=== PATIENT | female | born 1970 | race Caucasian/White ===

== ENCOUNTER → 2016-04-21 | Outpatient (REF) | payer OTHER ==
[~2016-04-21] MED LIST: /CELE20CA PO; ALDA25TA2 OR; CELE10TA PO; DARV100T OR; IBUP600T OR; KETO-28 OR; NORC5TAB PO; OXYC10TA56 OR; SERT25TA85 PO; TETR500C OR; TRAM50TA2 OR; VALI5TAB PO; VENL75TA2 OR; VOLT1GEL EX; ZIPSOR OR; ZOLO50TA OR; antidepressant PO
[2016-04-21 18:36] LABS: INR 0.98
== END ==
LOC: M LABDRAW1 16:10
PROVIDERS: ATTEND Physical Medicine & Rehabilitation
DX: Z01.818 Encounter for other preprocedural examination (principal); M48.02 Spinal stenosis, cervical region

== ENCOUNTER → 2016-05-07 | Outpatient (CLI) | payer OTHER ==
--- NOTE | 2016-05-07 10:21 | REP ---
DIGITAL SCREENING BILATERAL MAMMOGRAPHY WITH CAD: Comparison bilateral mammography March 25, 2015, August 16, 2014, January 22, 2014, November 16, 2013. The patient is status post excisional lumpectomy for benign mass in the right breast January 2014. FINDINGS: There is a moderate stable pattern of scattered fibroglandular tissue bilaterally unchanged from recent prior mammography. Normal appearing lymph nodes are seen in each axilla. No mass spiculation, or architectural distortion is seen. However, there is a new tight grouping of microcalcifications in the upper outer quadrant of the right breast which merits further evaluation. Study is otherwise unremarkable. IMPRESSION: BIRADS category 0 incomplete breast imaging. New microcalcifications in the upper outer quadrant of the right breast. Recommend diagnostic right breast mammography. BI-RADS/ACR category 0 mammogram, incomplete. Additional imaging and/or prior images are needed before a final assessment can be assigned. This mammogram was interpreted with the aid of an FDA-approved computer-aided detection system. The patient states that she/he has not had a clinical breast exam in over a year. The patient letter being requested is M0 . Signed by Rich Javed MD 05/07/2016 10:26 A
== END ==
LOC: M RAD 09:30
PROVIDERS: ATTEND Physician Assistant Medical
DX: Z12.31 Encounter for screening mammogram for malignant neoplasm of breast (principal); R92.8 Other abnormal and inconclusive findings on diagnostic imaging of breast

== ENCOUNTER → 2016-05-07 | Outpatient (CLI) | payer OTHER ==
--- NOTE | 2016-05-07 12:14 | REP ---
Cervical spine series: Nine views. History: Occipital neuralgia. Comparison cervical spine views are from October 08, 2015. Findings: The patient is status post ventral discectomy and fusion plating across the C5-C7 vertebral body levels. No change in position of the fusion plate or disc grafts at the surgical site since the prior study. There is straightening of the normal cervical lordosis and some limitation of flexion/extension range of motion is seen on flexion/extension lateral views. No subluxation or instability is seen. AP and open mouth odontoid views are otherwise unremarkable. Oblique images demonstrate intact neural foramina bilaterally at each cervical level and normally aligned facets. Impression: Straightening and limited range of motion status post C5-C7 fusion. No change in findings from October 08, 2015. Signed by Rich Javed MD 05/07/2016 03:09 P
== END ==
LOC: M RAD 10:41
PROVIDERS: ATTEND Neurological Surgery
DX: M54.81 Occipital neuralgia (principal)

== ENCOUNTER → 2016-05-14 | Outpatient (CLI) | payer OTHER ==
--- NOTE | 2016-05-14 13:16 | REP ---
Digital diagnostic unilateral right breast mammography with CAD: History: Screening mammography from May 07, 2016 is BIRADS category 0 because of some new calcifications in the upper outer quadrant of the right breast. Diagnostic imaging is recommended. Comparison is also made with prior study from August 16, 2014 and March 25, 2015. There is apparently a history of excisional biopsy from the right breast as well. Findings: Magnified focal spot compression CC, true ML, and MLO views of the right breast are obtained. These show moderate fibroglandular elements. There is a grouping of coarse heterogeneous microcalcifications in the upper outer quadrant confirmed on magnified images. These are fairly superficial in the upper outer quadrant. No stromal density or mass lesion is seen. There is another single coarse calcification a little more anterior and inferior. These are new. Mammography is otherwise unremarkable today. Impression: A small grouping of coarse heterogeneous microcalcifications is confirmed in the right breast upper outer quadrant. BIRADS category 4 suspicious right breast imaging. Stereotactic needle biopsy recommended. This mammogram was interpreted with the aid of an FDA-approved computer-aided detection system. The patient states that she/he has not had a clinical breast exam in over a year. The patient letter being requested is M4 . Signed by Rich Javed MD 05/14/2016 02:59 P
== END ==
LOC: M RAD 12:35
PROVIDERS: ATTEND Physician Assistant Medical
DX: R92.0 Mammographic microcalcification found on diagnostic imaging of breast (principal)

== ENCOUNTER → 2016-05-29 | Outpatient (CLI) | payer OTHER ==
[~2016-05-29] MED LIST changes: +LIDOCAINE 1% MDV 20ML VIAL As Ordered ONE
--- NOTE | 2016-05-29 13:09 | REP ---
Digital diagnostic unilateral right breast mammography: Two views with CAD. History: Marker clip placement views. The patient is status post stereotactic needle biopsy of the right breast for microcalcifications. Findings: A stereotactically placed needle biopsy marker clip is seen in good position at the site where prior mammography from May 14, 2016 showed a suspicious grouping of microcalcifications. The microcalcifications are no longer present. No hematoma is seen. Impression: Marker clip in good position. This mammogram was interpreted with the aid of an FDA-approved computer-aided detection system. Signed by Rich Javed MD 05/29/2016 02:59 P
--- NOTE | 2016-05-29 13:10 | REP ---
Specimen radiograph right breast. History: Stereotactic needle biopsy for microcalcifications right breast. Findings: Specimen radiography demonstrates microcalcifications from the target grouping of microcalcifications in two of the removed specimens. Impression: Specimen radiography shows microcalcifications. Signed by Rich Javed MD 05/29/2016 02:59 P
--- NOTE | 2016-05-29 16:14 | REP ---
STEREOTACTIC RIGHT BREAST BIOPSY: The procedure was performed under the direct supervision of Dr. Javed. The patient has a history of a small grouping of course heterogenous microcalcifications in the right breast upper outer quadrant seen on a previous mammogram dated 05/14/2016. The risks and benefits of the procedure were explained to the patient and informed consent was obtained. A cranial caudal approach was utilized. The calcifications were localized using stereotactic mammographic guidance. The skin was prepped and draped in a sterile fashion. 1% Xylocaine was used as a local anesthetic. A 10-gauge suction assisted Mammotome needle was inserted and 6 core biopsy samples were obtained. Specimen radiograph demonstrates the presence of calcifications to be within the specimen. A marker clip was placed at the biopsy site. The patient tolerated the procedure well and there were no immediate complications. After the appropriate amount of monitored convalescence the patient was discharged from the department. Reviewed by TUYET Crowell 05/29/2016 04:33 PEdited and Signed by Rich Javed MD 05/29/2016 04:58 P
== END ==
LOC: M RADPRO 11:29
PROVIDERS: ATTEND Surgery
DX: D24.1 Benign neoplasm of right breast (principal)

== ENCOUNTER → 2016-07-29 | Outpatient (CLI) | payer OTHER ==
[~2016-07-29] MED LIST changes: -LIDOCAINE 1% MDV 20ML VIAL As Ordered ONE; +NORC1TAB4 PO; -NORC5TAB PO; +SERT25TA PO; -SERT25TA85 PO
--- NOTE | 2016-07-29 09:58 | REP ---
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 Comparison MRI study is from November 22, 2015 done at [facility]. Technique: Sagittal and axial T1 and T2-weighted scans are acquired in the usual fashion with and without fat saturation. Sequences include spin echo, turbo spin-echo, and STIR imaging sequences. MRI findings: There is straightening of the normal cervical lordosis. Magnetic field susceptibility artifact is seen emanating from the ventral discectomy and fusion plate procedure across the C5-C7 vertebral body levels as on the December 07, 2015 prior MRI study. Alignment is normal. The cervical cord is normal in coarse caliber and signal intensity on T1 and T2-weighted scans. No cord compressive lesion or myelomalacia lesion is seen. No extra spinal abnormality is observed. Axial and sagittal images at C2-3 show minimal central disc bulging. At C3-4, there is diffuse disc bulging. There is no neural foraminal narrowing or central canal stenosis. At C4-5, there is right paracentral disc bulging effacing the ventral subarachnoid space but not visibly compressing the cord. No neural foraminal narrowing is seen. At C5-6, no cord compression is seen. At C6-7, there is a small zone of residual posterior osteophytic lipping just to the right of midline effacing the ventral subarachnoid space but not compressing the cord. This is unchanged. The C7-T1 level is unremarkable. Impression: Mild degenerative spondylosis changes. The patient status post C5-C7 ventral discectomy and fusion plating. Normal alignment. No evidence of cord compression or myelomalacia lesion. Signed by Rich Javed MD 07/29/2016 10:44 A
== END ==
LOC: M RAD 07:18
PROVIDERS: ATTEND Neurological Surgery
DX: M54.81 Occipital neuralgia (principal); M47.892 Other spondylosis, cervical region; M47.12 Other spondylosis with myelopathy, cervical region; Z98.1 Arthrodesis status

== ENCOUNTER → 2016-12-22 | Outpatient (REF) | payer OTHER ==
[2016-12-22 18:27] LABS: INR 0.93
== END ==
LOC: M LABDRAW1 15:37
PROVIDERS: ATTEND Physical Medicine & Rehabilitation
DX: Z01.818 Encounter for other preprocedural examination (principal)

== ENCOUNTER → 2017-06-02 | Outpatient (CLI) | payer OTHER | LOC: M RAD 09:30 | DX: Z12.31 Encounter for screening mammogram for malignant neoplasm of breast (principal) | CPT/HCPCS: 77067 ==

== ENCOUNTER → 2018-07-14 | Outpatient (CLI) | payer OTHER ==
[~2018-07-14] MED LIST changes: -/CELE20CA PO; +CELE1CAP4 PO; -NORC1TAB4 PO; +NORC1TAB7 PO; -SERT25TA PO; +SERT25TA85 PO
--- NOTE | 2018-07-14 14:36 | REP ---
Clinical: Radiculopathy. Technique: AP and lateral views. Comparison: 03/04/2017. Findings: Alignment is maintained with mild straightening of normal lordosis suggested. Previous anterior fixation at C5 - C7 remains stable and unchanged. New fixation screws and discectomy involving C4-C5 appreciated and appears relatively normal. No acute fracture / compression injury or subluxation. Spinous processes are intact. Prevertebral soft tissues are normal. Impression: Stable/normal postsurgical appearance. No acute fracture / compression injury or subluxation noted. Electronically Signed by Mark Anthony Plaza MD 07/14/2018 02:27 P
== END ==
LOC: M RAD 13:51
PROVIDERS: ATTEND Neurological Surgery
DX: M50.10 Cervical disc disorder with radiculopathy, unspecified cervical region (principal)

== ENCOUNTER → 2018-10-24 | Outpatient (CLI) | payer OTHER ==
--- NOTE | 2018-10-24 21:01 | REP ---
Clinical: Status post fixation. Technique: AP and lateral views of the cervical spine. Findings: Surgical skin miguel a identified midline posteriorly. The patient is status post bilateral Nash rods from C3 to T1 along with anterior fixation. Alignment is maintained. Impression: Status post fixation. Alignment maintained. Electronically Signed by Mark Anthony Plaza MD 10/24/2018 08:52 P
== END ==
LOC: M RAD 15:47
PROVIDERS: ATTEND Physician Assistant Surgical
DX: M50.30 Other cervical disc degeneration, unspecified cervical region (principal); M50.10 Cervical disc disorder with radiculopathy, unspecified cervical region; Z98.1 Arthrodesis status

== ENCOUNTER → 2020-08-16 | Outpatient (CLI) | payer OTHER ==
--- NOTE | 2020-08-16 16:18 | REPMRS ---
Patient History The patient states she has not had a clinical breast exam in over a year. Family history of colorectal cancer at age 50 or over in maternal grandfather. Benign radio exam breast specimen of the right breast, May 29, 2016. Benign stereotatic loc for ea lesion of the right breast, May 29, 2016. Radio exam Breast Specimen, January 22, 2014. Benign lumpectomy of the right breast, January 22, 2014. Benign US guided breast biopsy of the right breast, November 16, 2013. No Hormone Replacement Therapy Patient has signed MRS History Sheet. Patient states intermittent right breast pain. Digital Woman Screen Mammo: August 16, 2020 - Exam #: [id number] Bilateral CC and MLO view(s) were taken. Technologist: Jane Banuelos, Technologist Prior study comparison: June 02, 2017, bilateral digital mammo screening bilat, performed at [facility]. May 14, 2016, right breast digital mammo diagnostic unilateral, performed at [facility]. FINDINGS: The breast tissue is heterogeneously dense. This may lower the sensitivity of mammography. Screening. Digital screening (2D) mammography was performed bilaterally in the CC and MLO projections. Additionally, breast tomosynthesis (3D mammography) was performed bilaterally in the CC and MLO projections. Todays exam was compared to the prior exams(s). By history, the patient has no complaints of a palpable breast abnormality or other significant breast complaints. The breasts are unchanged in size and shape.Once again, dense heterogenous fibroglandular elements are seen bilaterally in a stable appearing pattern but to such a degree that the sensitivity of the mammogram in detecting cancer is decreased. There are no suzi-soft tissue densities or spiculated masses. There is no internal architectural distortion. There are no suspicious suzi-calcific clusters. Skin thickening or nipple retraction is not present. IMPRESSION: BI-RADS Category 2- Benign Findings(s). There is no evidence of malignant alteration of the breasts. Followup examination recommended in one year. The Volpara volumetric breast density category is C, the breasts are heterogenously dense which may obscure small masses. This mammogram was read with the assistance of [employer]an FDA approved computer aided detection system for mammography. Findings:The lifetime Tyrer-Cuzick score is 9.3 % Negative x-ray reports should not delay surgical consultation if a dominant or clinically suspicious mass is present. Not all breast cancers can be identified by mammography. Therefore, we recommend that you continue to perform regular breast self-examination and physical examination and then promptly contact your physician of any concerns or changes. Adenosis and dense breasts may obscure an underlying neoplasm. Assessment: BI-RADS/ACR category 2 mammogram. Benign Findings. Recommendation Routine screening mammogram of both breasts in 1 year. Electronically Signed By: Isaiah Medrano DO 08/16/20 [id number]
== END ==
LOC: M WHC 15:14
PROVIDERS: ATTEND Physician Assistant Medical
DX: Z12.31 Encounter for screening mammogram for malignant neoplasm of breast (principal); Z80.0 Family history of malignant neoplasm of digestive organs; N60.21 Fibroadenosis of right breast; N60.22 Fibroadenosis of left breast

== ENCOUNTER → 2020-08-27 | Outpatient (CLI) | payer OTHER ==
--- NOTE | 2020-08-28 09:13 | REP ---
INDICATION: DENSE BREAST. COMPARISON: There are no prior whole breast screening ultrasound examinations for comparison. TECHNIQUE: Bilateral whole breast screening ultrasonography was performed using anatomical intelligence and shear wave elastography where indicated. FINDINGS: Right breast: At the 11/12 o'clock position 2 smoothly marginated round hypoechoic structures are seen the largest measuring 5 millimeters both exhibiting posterior wall enhancement and increased through transmission. These are 2.8 millimeters apart and between them is a linear echogenic focus consistent with a post biopsy clip marker. Shear wave elastography was performed, however, the clip marker was included. Due to their close proximity shear wave and each nodule cannot be performed independently. At the 9 o'clock position there is a smoothly marginated hypoechoic structure which measures 1 centimeter in its greatest dimension shear wave elastography was performed on this showing low kPa values. At the 10 o'clock position there is an anechoic 8 millimeters size structure which exhibits posterior wall enhancement and increased through transmission. Left breast: At the 11 o'clock position there is an oval-shaped smoothly marginated hypoechoic structure measuring 9 millimeters and exhibiting posterior wall enhancement and increased through transmission. Shear wave elastography was performed on this and showing low kPa values. Additionally, at the 11 o'clock position there is a smoothly marginated hypoechoic structure which measures 6 millimeters in its greatest dimension and exhibits posterior wall enhancement and increased through transmission. Shear wave elastography on this lesion shows low kPa values. IMPRESSION: 1. In the right breast adjacent to a post biopsy clip there are 2 solid nodules, as described above, and both likely benign postoperative change, however, since I have no prior post biopsy ultrasound examinations for review a six-month follow-up examination particularly over that region is recommended. 2. In the right breast at the 9 o'clock position there is a probably benign small nodule as described above. 3. In the right breast at the 10 o'clock position there is a simple cyst. 4. In the left breast there are 2 hypoechoic nodules, as described above, both of which are probably benign. 5. ACR category 3 probably benign findings bilaterally. Six-month follow-up focused over the aforementioned areas recommended. <Electronically signed by Isaiah Medrano > 08/28/20 [id number]
== END ==
LOC: M WHC 13:02
PROVIDERS: ATTEND Physician Assistant Medical
DX: Z12.31 Encounter for screening mammogram for malignant neoplasm of breast (principal); N63.22 Unspecified lump in the left breast, upper inner quadrant

== ENCOUNTER 2020-11-27 12:15 | Day surgery (SDC) | payer OTHER ==
[~2020-11-27] VITALS: Ht 167.6 cm; Wt 85.3 kg
[~2020-11-27 12:15] MED LIST changes: +ATOR80TA59; +CYCL-707; +ERGO500029; +IBUP-1022; +MAGN400T2; +NS 1,000 ML IV ONE; +PANT40TA29; +SERT50TA29; +TRAM50TA2
[2020-11-27] MEDS ORDERED: LIDOCAINE 2% 100MG/5ML SDV (FOR ANES.) As Ordered ONE (13:45)
[2020-11-27] MEDS ORDERED: propofoL 200 MG/20 ML VIAL As Ordered ONE ×3 (13:45→15:00)
[2020-11-27] MEDS ORDERED: fentaNYL 100 MCG/2 ML INJECTION (J3010) As Ordered ONE (13:45)
[2020-11-27 15:40] VITALS: BP 122/82
--- NOTE | 2020-11-27 16:00 | ROOR ---
Patient Name: Nieves Ackerman Procedure Date: 11/27/2020 2:22 PM Date of : 1970 Age: 50 Room: [facility] Gender: Female Note Status: Finalized Procedure: Upper GI endoscopy Indications: Epigastric abdominal pain, Dyspepsia Providers: Cam Pretty MD Referring MD: [facility] Archana MILLIGAN [facility], Admin. Requesting Provider: Medicines: Monitored Anesthesia Care Complications: No immediate complications. Procedure: Pre-Anesthesia Assessment: - Prior to the procedure, a History and Physical was performed, and patient medications and allergies were reviewed. The patient is competent. The risks and benefits of the procedure and the sedation options and risks were discussed with the patient. All questions were answered and informed consent was obtained. Patient identification and proposed procedure were verified by the physician, the nurse and the anesthesiologist in the procedure room. Mental Status Examination: alert and oriented. Airway Examination: normal oropharyngeal airway and neck mobility. Prophylactic Antibiotics: The patient does not require prophylactic antibiotics. Prior Anticoagulants: The patient has taken no previous anticoagulant or antiplatelet agents. ASA Grade Assessment: II - A patient with mild systemic disease. After reviewing the risks and benefits, the patient was deemed in satisfactory condition to undergo the procedure. The anesthesia plan was to use monitored anesthesia care (MAC). Immediately prior to administration of medications, the patient was re-assessed for adequacy to receive sedatives. The heart rate, respiratory rate, oxygen saturations, blood pressure, adequacy of pulmonary ventilation, and response to care were monitored throughout the procedure. The physical status of the patient was re-assessed after the procedure. The Endoscope was introduced through the mouth, and advanced to the second part of duodenum. The upper GI endoscopy was accomplished without difficulty. The patient tolerated the procedure well. Findings: The examined esophagus was normal. The Z-line was regular. A few diminutive sessile polyps with no bleeding and no stigmata of recent bleeding were found on the greater curvature of the stomach. Normal mucosa was found in the entire examined stomach. Biopsies were taken from the antrum with a cold forceps for Helicobacter pylori testing. The first portion of the duodenum and second portion of the duodenum were normal. Biopsies were taken with a cold forceps for histology. Estimated blood loss was minimal. Impression: - Normal esophagus. - Z-line regular. - A few gastric polyps. - Normal mucosa was found in the entire stomach. Biopsied. - Normal first portion of the duodenum and second portion of the duodenum. Biopsied. Recommendation: - Discharge patient to home. - Resume previous diet. - Continue present medications. - Await pathology results. - Return to endoscopist as previously scheduled. Procedure Code(s): --- Professional --- 75806, Esophagogastroduodenoscopy, flexible, transoral; with biopsy, single or multiple Diagnosis Code(s): --- Professional --- K31.7, Polyp of stomach and duodenum R10.13, Epigastric pain CPT copyright 2019 [employer]. All rights reserved. The codes documented in this report are preliminary and upon pollution control engineer review may be revised to meet current compliance requirements. Cam Pretty MD Cam Pretty MD 11/27/2020 4:00:17 PM Electronically signed by Cam Pretty MD Number of Addenda: 0 Note Initiated On: 11/27/2020 2:22 PM Estimated Blood Loss: Estimated blood loss was minimal.
--- NOTE | 2020-11-27 16:11 | ROOR ---
Patient Name: Nieves Ackerman Procedure Date: 11/27/2020 2:23 PM Date of : 1970 Age: 50 Room: [facility] Gender: Female Note Status: Finalized Procedure: Colonoscopy Indications: High risk colon cancer surveillance: Personal history of colonic polyps Providers: Cam Pretty MD Referring MD: [facility] Archana MILLIGAN [facility], Admin. Requesting Provider: Medicines: Monitored Anesthesia Care Complications: No immediate complications. Procedure: Pre-Anesthesia Assessment: - Prior to the procedure, a History and Physical was performed, and patient medications and allergies were reviewed. The patient is competent. The risks and benefits of the procedure and the sedation options and risks were discussed with the patient. All questions were answered and informed consent was obtained. Patient identification and proposed procedure were verified by the physician, the nurse and the anesthesiologist in the procedure room. Mental Status Examination: alert and oriented. Airway Examination: normal oropharyngeal airway and neck mobility. Prophylactic Antibiotics: The patient does not require prophylactic antibiotics. Prior Anticoagulants: The patient has taken no previous anticoagulant or antiplatelet agents. ASA Grade Assessment: II - A patient with mild systemic disease. After reviewing the risks and benefits, the patient was deemed in satisfactory condition to undergo the procedure. The anesthesia plan was to use monitored anesthesia care (MAC). Immediately prior to administration of medications, the patient was re-assessed for adequacy to receive sedatives. The heart rate, respiratory rate, oxygen saturations, blood pressure, adequacy of pulmonary ventilation, and response to care were monitored throughout the procedure. The physical status of the patient was re-assessed after the procedure. The Colonoscope was introduced through the anus and advanced to the cecum, identified by appendiceal orifice and ileocecal valve. The colonoscopy was performed without difficulty. The patient tolerated the procedure well. The quality of the bowel preparation was good. Findings: The perianal and digital rectal examinations were normal. A 4 mm polyp was found in the proximal ascending colon. The polyp was sessile. The polyp was removed with a cold snare. Resection and retrieval were complete. Estimated blood loss was minimal. A 6 mm polyp was found at 50 cm proximal to the anus. The polyp was sessile. The polyp was removed with a cold snare. Resection and retrieval were complete. Estimated blood loss was minimal. One small-mouthed diverticulum was found in the distal sigmoid colon. Impression: - One 4 mm polyp in the proximal ascending colon, removed with a cold snare. Resected and retrieved. - One 6 mm polyp at 50 cm proximal to the anus, removed with a cold snare. Resected and retrieved. - Diverticulosis in the distal sigmoid colon. Recommendation: - Discharge patient to home. - Resume previous diet. - Continue present medications. - Await pathology results. - Return to endoscopist at appointment to be scheduled. Procedure Code(s): --- Professional --- 88651, Colonoscopy, flexible; with removal of tumor(s), polyp(s), or other lesion(s) by snare technique Diagnosis Code(s): --- Professional --- Z86.010, Personal history of colonic polyps K63.5, Polyp of colon K57.30, Diverticulosis of large intestine without perforation or abscess without bleeding CPT copyright 2019 [employer]. All rights reserved. The codes documented in this report are preliminary and upon food service substitute review may be revised to meet current compliance requirements. Cam Pretty MD Cam Pretty MD 11/27/2020 4:11:43 PM Electronically signed by Cam Pretty MD Number of Addenda: 0 Note Initiated On: 11/27/2020 2:23 PM Estimated Blood Loss: Estimated blood loss was minimal.
== END 2020-11-27 16:20 | disposition home or self-care (01) ==
LOC: M OPP 12:15
PROVIDERS: ATTEND Surgery
DX: Z12.11 Encounter for screening for malignant neoplasm of colon (principal); Z86.010 Personal history of colon polyps; K63.5 Polyp of colon; K57.30 Diverticulosis of large intestine without perforation or abscess without bleeding; K31.7 Polyp of stomach and duodenum; R10.13 Epigastric pain; Z83.79 Family history of other diseases of the digestive system; Z79.891 Long term (current) use of opiate analgesic; Z79.899 Other long term (current) drug therapy; F17.210 Nicotine dependence, cigarettes, uncomplicated; Z01.812 Encounter for preprocedural laboratory examination; Z20.828 Contact with and (suspected) exposure to other viral communicable diseases
CPT/HCPCS: 43239; 45385; 88305; J3010; U0002

== ENCOUNTER → 2021-04-16 | Outpatient (CLI) | payer OTHER ==
[~2021-04-16] MED LIST changes: -NS 1,000 ML IV ONE
--- NOTE | 2021-04-16 11:47 | REP ---
INDICATION: CAT 3 6 MONTH FOLLOW UP. COMPARISON: 08/27/2020. TECHNIQUE: Real-time sonographic evaluation of entire bilateral breasts performed. FINDINGS: In the right breast at the 12 o'clock position there is a cyst which measures 5 mm in diameter, not significantly changed compared to the prior study. An adjacent hypoechoic nodule demonstrates distal acoustic shadowing and measures 5 mm, also unchanged. At 9 o'clock position right breast, a bilobed cystic structure measures 10 x 4 x 9 mm, unchanged. In the left breast, at the 11 o'clock position, 2 adjacent cysts measure 5 x 3 x 5 mm and 8 x 4 x 7 mm, not significantly changed. Elastography interrogation demonstrates that all of these nodules demonstrate KP a values less than 20. IMPRESSION: BIRADS/ACR category 3, probably benign. Bilateral subcentimeter nodules, most of which are most likely cysts. There is 1 nodule in the right breast at 12 o'clock which demonstrates distal acoustic shadowing and does not fulfill all criteria for a simple cyst. Recommend six-month follow-up ultrasound of that nodule. RECOMMENDATION: Recommend six-month follow-up ultrasound of right breast 12 o'clock nodule as discussed above. <Electronically signed by Mango Ceja > 04/16/21 [id number]
== END ==
LOC: M WHC 09:01
PROVIDERS: ATTEND Nurse Practitioner Primary Care
DX: N63.20 Unspecified lump in the left breast, unspecified quadrant (principal); N63.10 Unspecified lump in the right breast, unspecified quadrant

== ENCOUNTER → 2021-08-18 | Outpatient (CLI) | payer OTHER | LOC: M WHC 12:41 | PROVIDERS: ATTEND Surgery | DX: R92.8 Other abnormal and inconclusive findings on diagnostic imaging of breast (principal); N60.02 Solitary cyst of left breast; N63.10 Unspecified lump in the right breast, unspecified quadrant | CPT/HCPCS: 76642; 77066; G0279 ==

== ENCOUNTER → 2022-06-04 | Outpatient (CLI) | payer OTHER | LOC: M WHC 08:03 | PROVIDERS: ATTEND Nurse Practitioner Women's Health | DX: R92.8 Other abnormal and inconclusive findings on diagnostic imaging of breast (principal); N63.10 Unspecified lump in the right breast, unspecified quadrant; N60.11 Diffuse cystic mastopathy of right breast; N60.12 Diffuse cystic mastopathy of left breast ==

== ENCOUNTER → 2023-08-24 | Outpatient (CLI) | payer OTHER | LOC: M WHC 09:17 | PROVIDERS: ATTEND Nurse Practitioner Family | DX: R92.0 Mammographic microcalcification found on diagnostic imaging of breast (principal) | CPT/HCPCS: 76642; 77066; G0279 ==

== ENCOUNTER → 2024-08-09 | Outpatient (CLI) | payer OTHER | LOC: M PLAIMG 15:03 | PROVIDERS: ATTEND Student in an Organized Health Care Education/Training Program | DX: M54.41 Lumbago with sciatica, right side (principal); G89.29 Other chronic pain; M99.63 Osseous and subluxation stenosis of intervertebral foramina of lumbar region; M46.96 Unspecified inflammatory spondylopathy, lumbar region ==

== ENCOUNTER → 2024-09-06 | Outpatient (CLI) | payer OTHER | LOC: M WHC 13:58 | PROVIDERS: ATTEND Nurse Practitioner Family | DX: Z12.31 Encounter for screening mammogram for malignant neoplasm of breast (principal); R92.323 Mammographic fibroglandular density, bilateral breasts ==